=== PATIENT | female | born 1970 | race Caucasian/White ===

== ENCOUNTER 2024-06-21 06:15 | Day surgery (SDC) | payer BC ==
[2024-06-21] MEDS: Lactated Ringers 1,000 ML IV SCH (06:09)
[~2024-06-21 06:15] MED LIST: Lidocaine 1% 0 ML ONE; Midazolam 1 MG/ML 2 ML SDV ONE; Propofol 200 MG/20 ML SDV ONE; Sodium Chloride 0.9% 10 ML Syringe FLUSH PRN; Sodium Chloride 0.9% 10 ML Syringe FLUSH SCH; fentaNYL 100 MCG/2 ML SDV ONE
[2024-06-21 06:26] VITALS: PULSE 78
[2024-06-21] MEDS: Lidocaine 1% 10 ML MDV ONE (07:07)
[2024-06-21] MEDS: Bupivacaine 0.25% 10 ML SDV ONE (07:07)
[2024-06-21 07:40] VITALS: BP 109/72
== END 2024-06-21 07:22 | disposition home or self-care (01) ==
LOC: JD.SDS 06:15
PROVIDERS: ATTEND Orthopaedic Surgery
DX: M65.311 Trigger thumb, right thumb (principal); Z79.899 Other long term (current) drug therapy
CPT/HCPCS: 26055; J0665; J2003; J7120; J2250; J2704; J3010